=== PATIENT | female | born 1990 | race Hispanic/Latino ===

== ENCOUNTER 2017-07-09 17:56 | Emergency (ER) | payer OTHER ==
[~2017-07-09] VITALS: Ht 170.2 cm; Wt 125.2 kg
[2017-07-09] MEDS ORDERED: KETOROLAC TROMETHAMINE 30 MG/ML VIAL IV STA (21:54)
[2017-07-09] MEDS ORDERED: ONDANSETRON HCL INJ 2 MG/ML VIAL IV STA (21:54)
[2017-07-09 22:51] LABS: BILIRUBIN,URINE NEGATIVE (NEGATIVE); KETONES,URINE NEGATIVE (NEGATIVE); LEUKOCYTE ESTERASE ,URINE NEGATIVE (NEGATIVE); NITRITE,URINE NEGATIVE (NEGATIVE); PROTEIN,URINE DIPSTICK NEGATIVE (NEGATIVE); URINE UROBILINOGEN 0.2 mg/dL (0.2 - 1)
[2017-07-09 22:57] LABS: CLARITY,URINE CLEAR (CLEAR); COLOR,URINE YELLOW (YELLOW)
[2017-07-09 22:58] LABS: PREGNANCY TEST, URINE NEGATIVE (NEGATIVE)
[2017-07-09 23:40] LABS: BASOPHILS # (AUTO) 0.1 (0.0-0.1); BASOPHILS % 0.3 % (0.0-1.0); EOSINOPHILS # (AUTO) 0.3 (0.0-0.4); EOSINOPHILS % 2.2 % (0.0-6.0); HEMATOCRIT 38.1 % (34.2-44.1); HEMOGLOBIN 12.2 g/dL (12.0-16.0); LYMPHOCYTES # (AUTO) 4.2 (1.0-3.2); LYMPHOCYTES % 29.4 % (18.0-39.1); MEAN CORPUSCULAR HEMOGLOBIN 25.8 pg (28-32); MEAN CORPUSCULAR VOLUME 80.7 fL (81-99); MONOCYTES # (AUTO) 0.9 (0.2-0.8); MONOCYTES % 6.4 % (4.4-11.3); NEUTROPHILS # (AUTO) 8.8 (2.1-6.9); NEUTROPHILS % 61.4 % (38.7-80.0); PLATELET COUNT 390 x10e3/uL (140-360); RED BLOOD COUNT 4.72 x10e6/uL (3.6-5.1); RED CELL DISTRIBUTION WIDTH 14.4 % (11.7-14.4)
[2017-07-09 23:51] LABS: ALANINE AMINOTRANSFERASE 24 IU/L (0-55); ALBUMIN 3.6 g/dL (3.5-5.0); ALBUMIN/GLOBULIN RATIO 0.8 (0.8-2.0); ANION GAP 15.7 mmol/L (8-16); BLOOD UREA NITROGEN 11 mg/dL (7-26); BUN/CREATININE RATIO 14 (6-25); CALCIUM 9.3 mg/dL (8.4-10.2); CARBON DIOXIDE 20 mmol/L (22-29); CHLORIDE 106 mmol/L (98-107); CREATININE, SERUM 0.76 mg/dL (0.57-1.11); EST GLOMERULAR FILTRATION RATE > 60 ML/MIN (60-); GLUCOSE 83 mg/dL (74-118); POTASSIUM 3.7 mmol/L (3.5-5.1); SODIUM 138 mmol/L (136-145)
--- NOTE | 2017-07-09 23:54 | Diagnostic Imaging Report ---
EXAM: CT Abdomen and Pelvis WITHOUT contrast INDICATION: Left flank pain COMPARISON: None. TECHNIQUE: Abdomen and pelvis were scanned utilizing a multidetector helical scanner from the lung base to the pubic symphysis without administration of IV contrast. Absence of intravenous contrast decreases sensitivity for detection of focal lesions and vascular pathology. Coronal and sagittal reformations were obtained. Stone protocol is performed. IV CONTRAST: None. ORAL CONTRAST: Water RADIATION DOSE: Total DLP: 895.22 mGy*cm Estimated effective dose: (DLP x 0.015 x size factor) mSv COMPLICATIONS: None FINDINGS: LINES and TUBES: None. LOWER THORAX: Unremarkable HEPATOBILIARY: No focal hepatic lesions. No biliary ductal dilation. GALLBLADDER: No radio-opaque stones or sludge. The gallbladder is contracted No wall thickening. SPLEEN: No splenomegaly. PANCREAS: No focal masses or ductal dilatation. ADRENALS: No adrenal nodules KIDNEYS/URETERS: No hydronephrosis. No cystic or solid mass lesions. 2 mm stone noted in the interpolar region of the right kidney on series 3, image 63. No evidence of left nephrolithiasis GI TRACT: No abnormal distention, wall thickening, or evidence of bowel obstruction. Appendix is normal. PELVIC ORGANS/BLADDER: Unremarkable. LYMPH NODES: No lymphadenopathy. VESSELS: Circumaortic left renal vein. Otherwise unremarkable. PERITONEUM / RETROPERITONEUM: No free air or fluid. BONES: Unremarkable. SOFT TISSUES: Unremarkable. IMPRESSION: 1. Right-sided nonobstructing nephrolithiasis measuring 2 mm. No evidence of left-sided nephrolithiasis or hydronephrosis. 2. Otherwise, unremarkable study Signed by: Dr. Jeremiah Christopher M.D. on 07/09/2017 11:51 PM
[2017-07-10] LABS: BACTERIA,URINE MANY /HPF; EPITHELIAL CELLS,URINE MODERATE /LPF; RBC,URINE 0-5 /HPF (0-5); WBC,URINE (MAN) 0-5 /HPF (0-5)
[2017-07-10 00:16] VITALS: BP 133/87
[2017-07-10 00:16] LABS: ALKALINE PHOSPHATASE 96 IU/L (40-150)
== END 2017-07-10 00:21 | disposition home or self-care (01) ==
LOC: ER 17:56
DX: R10.9 Unspecified abdominal pain (principal); R11.0 Nausea; M54.5 Low back pain; N20.0 Calculus of kidney
CPT/HCPCS: 36415; 74176; 80053; 81001; 81025; 85025; 87086; 99284; J1885; J2405

== ENCOUNTER 2019-02-26 08:11 | Emergency (ER) | payer OTHER ==
[~2019-02-26] VITALS: Ht 170.2 cm; Wt 125.2 kg
--- OUTSIDE RECORDS SUMMARY | 2019-02-26 08:14 | XMS REPORT ---
[facility] Address Unknown Phone Unavailable Care Team Providers Care [employer]ader Name Role Phone Alysa VERGARA Unavailable Unavailable Problems This patient has no known problems. Allergies, Adverse Reactions, Alerts This patient has no known allergies or adverse reactions. Medications This patient has no known medications. Results Test Description Test Time Test Comments Text Results Atomic Results Result Comments CT ABDOMEN/PELVIS WO [place] [address] Patient Name: MORENITA COLLAZO MR #: [id number] : 1990 Age/Sex: 27/F Req #: [id number] Adm Physician: Ordered by: QUIN ALLEN MD Report #: [id number] Location: ER Room/Bed: Procedure: [id number] CT/CT ABDOMEN/PELVIS WO Exam Date: 07/09/17 Exam Time: 2318 REPORT STATUS: Signed EXAM: CT Abdomen and Pelvis WITHOUT contrast INDICATION: Left flank pain COMPARISON: None. TECHNIQUE: Abdomen and pelvis were scanned utilizing a multidetector helical scanner from the lung base to the pubic symphysis without administration of IV contrast. Absence of intravenous contrast decreases sensitivity for detection of focal lesions and vascular pathology. Coronal and sagittal reformations were obtained. Stone protocol is performed. IV CONTRAST: None. ORAL CONTRAST: Water RADIATION DOSE: Total DLP: 895.22 mGy*cm Estimated effective dose: (DLP x 0.015 x size factor) mSv COMPLICATIONS: None FINDINGS: LINES and TUBES: None. LOWER THORAX: Unremarkable HEPATOBILIARY: No focal hepatic lesions. No biliary ductal dilation. GALLBLADDER: No radio-opaque stones or sludge. The gallbladder is contracted No wall thickening. SPLEEN: No splenomegaly. PANCREAS: No focal masses or ductal dilatation. ADRENALS: No adrenal nodules KIDNEYS/URETERS: No hydronephrosis. No cystic or solid mass lesions. 2 mm stone noted in the interpolar region of the right kidney on series 3, image 63. No evidence of left nephrolithiasis GI TRACT: No abnormal distention, wall thickening, or evidence of bowel obstruction. Appendix is normal. PELVIC ORGANS/BLADDER: Unremarkable. LYMPH NODES: No lymphadenopathy. VESSELS: Circumaortic left renal vein. Otherwise unremarkable. PERITONEUM / RETROPERITONEUM: No free air or fluid. BONES: Unremarkable. SOFT TISSUES: Unremarkable. IMPRESSION: 1. Right-sided nonobstructing nephrolithiasis measuring 2 mm. No evidence of left-sided nephrolithiasis or hydronephrosis. 2. Otherwise, unremarkable study Signed by: Dr. Jeremiah Christopher M.D. on 07/09/2017 11:51 PM Dictated By: JEREMIAH CONNER MD [id number] Transcribed By: CHIKA on 07/09/17 [id number] COPY TO: QUIN ALLEN MD
[2019-02-26] MEDS ORDERED: SODIUM CHLORIDE 0.9% 1000ML 1,000 ML ONE (08:41)
[2019-02-26 08:48] LABS: BASOPHILS # (AUTO) 0.1 (0.0-0.1); BASOPHILS % 0.5 % (0.0-1.0); EOSINOPHILS # (AUTO) 0.3 (0.0-0.4); EOSINOPHILS % 2.9 % (0.0-6.0); HEMATOCRIT 39.2 % (34.2-44.1); HEMOGLOBIN 12.5 g/dL (12.0-16.0); LYMPHOCYTES # (AUTO) 2.7 (1.0-3.2); LYMPHOCYTES % 25.8 % (18.0-39.1); MEAN CORPUSCULAR HEMOGLOBIN 26.4 pg (28-32); MEAN CORPUSCULAR HGB CONC 31.9 g/dL (31-35); MEAN CORPUSCULAR VOLUME 82.7 fL (81-99); MONOCYTES # (AUTO) 0.7 (0.2-0.8); MONOCYTES % 6.7 % (4.4-11.3); NEUTROPHILS # (AUTO) 6.6 (2.1-6.9); NEUTROPHILS % 63.4 % (38.7-80.0); PLATELET COUNT 332 x10e3/uL (140-360); RED BLOOD COUNT 4.74 x10e6/uL (3.6-5.1); RED CELL DISTRIBUTION WIDTH 13.9 % (11.7-14.4)
[2019-02-26 08:50] LABS: BILIRUBIN,URINE NEGATIVE (NEGATIVE); CLARITY,URINE CLEAR (CLEAR); COLOR,URINE YELLOW (YELLOW); KETONES,URINE NEGATIVE (NEGATIVE); LEUKOCYTE ESTERASE ,URINE TRACE (NEGATIVE); NITRITE,URINE NEGATIVE (NEGATIVE); PROTEIN,URINE DIPSTICK TRACE (NEGATIVE); URINE UROBILINOGEN 0.2 mg/dL (0.2 - 1)
[2019-02-26] MEDS ORDERED: SODIUM CHLORIDE 0.9% IV ONE (09:00)
[2019-02-26 09:05] LABS: ALANINE AMINOTRANSFERASE 26 IU/L (0-55); ALBUMIN 3.3 g/dL (3.5-5.0); ALBUMIN/GLOBULIN RATIO 0.9 (0.8-2.0); ALKALINE PHOSPHATASE 92 IU/L (40-150); BLOOD UREA NITROGEN 9 mg/dL (7-26); BUN/CREATININE RATIO 12 (6-25); CALCIUM 8.9 mg/dL (8.4-10.2); CARBON DIOXIDE 22 mmol/L (22-29); CHLORIDE 105 mmol/L (98-107); CREATININE, SERUM 0.75 mg/dL (0.57-1.11); EST GLOMERULAR FILTRATION RATE > 60 ML/MIN (60-); GLUCOSE 100 mg/dL (74-118); SODIUM 136 mmol/L (136-145)
[2019-02-26 09:24] LABS: RBC,URINE 21-50 /HPF (0-5); WBC,URINE (MAN) 21-50 /HPF (0-5)
[2019-02-26 09:25] LABS: BACTERIA,URINE FEW /HPF; EPITHELIAL CELLS,URINE FEW /LPF
[2019-02-26] MEDS ORDERED: KETOROLAC TROMETHAMINE 30 MG/ML VIAL IV ONE (09:30)
[2019-02-26] MEDS ORDERED: MORPHINE SULFATE 2 MG/ML SYR 1ML IV ONE (09:30)
[2019-02-26] MEDS ORDERED: ONDANSETRON HCL INJ 2MG/ML 2ML 2 MG/ML VIAL IV ONE ×2 (09:30→11:30)
[2019-02-26 10:06] LABS: PREGNANCY TEST, URINE NEGATIVE (NEGATIVE)
[2019-02-26] MEDS ORDERED: MELATONIN3 MG PO (11:04)
[2019-02-26] MEDS ORDERED: TRINTELLIX PO (11:04)
[2019-02-26] MEDS ORDERED: ADZENYS PO (11:04)
[2019-02-26] MEDS ORDERED: QUETIAPINE FUM300 MG PO (11:04)
--- NOTE | 2019-02-26 11:30 | Diagnostic Imaging Report ---
Exam: CT abdomen and pelvis Comparison: July 09, 2017 Clinical history: Right flank pain Technique: Helical images of the abdomen and pelvis were obtained without contrast using the renal stone protocol Findings: Mild bibasilar dependent atelectasis is noted. There is no evidence of pleural effusion. The cardiac size is within normal limits. Noncontrast images of the liver, spleen, pancreas, gallbladder, adrenal glands, and kidneys are unremarkable. The prior mentioned 2 mm right nephrolithiasis is no longer visualized which may represent interval passage. The small and large bowels are normal in caliber without evidence of obstruction. Mild retained feces are noted throughout the colon. The bladder is unremarkable. Intrauterine device is noted within the uterus. There is interval development of a 5.0 x 4.8 cm isodense lesion in the left adnexa likely ovarian in origin. If indicated, pelvic ultrasound is recommended for further assessment. There is no evidence of lymphadenopathy or free fluid. The aorta and IVC are normal in caliber. Impression: 1. No evidence of radiopaque stones in bilateral renal collecting systems. 2. Left adnexal lesion measuring up to 5 cm in diameter, this may represent an ovarian cyst. However, a solid lesion cannot be excluded. Ultrasound is recommended for further assessment. Signed by: Dr. Pedro Monterroso MD on 02/26/2019 11:27 AM
[2019-02-26 11:53] VITALS: BP 101/55
== END 2019-02-26 12:04 | disposition home or self-care (01) ==
LOC: ER 08:11
DX: R10.31 Right lower quadrant pain (principal); N30.90 Cystitis, unspecified without hematuria; N83.202 Unspecified ovarian cyst, left side
CPT/HCPCS: 36415; 74176; 80053; 81001; 81025; 85025; 99284; J1885; J2270; J2405; J7030

== ENCOUNTER 2022-05-26 21:02 | Emergency (ER) | payer OTHER ==
[~2022-05-26] VITALS: Ht 170.2 cm; Wt 125.2 kg
[~2022-05-26 21:02] MED LIST: ADZENYS PO; MELATONIN3 MG PO; QUETIAPINE FUM300 MG PO; TRINTELLIX PO
[2022-05-26] MEDS ORDERED: KETOROLAC TROMETHAMINE 30 MG/ML VIAL IV STA (21:10)
[2022-05-26] MEDS ORDERED: ONDANSETRON HCL INJ 2MG/ML 2ML 2 MG/ML VIAL IV STA (21:10)
[2022-05-26] MEDS ORDERED: SODIUM CHLORIDE 0.9% 1000ML 1,000 ML IV SCH (21:15)
[2022-05-26 21:25] LABS: BASOPHILS # (AUTO) 0.1 (0.0-0.1); BASOPHILS % 0.5 % (0.0-1.0); EOSINOPHILS # (AUTO) 0.2 (0.0-0.4); EOSINOPHILS % 1.7 % (0.0-6.0); HEMATOCRIT 38.4 % (34.2-44.1); HEMOGLOBIN 12.5 g/dL (12.0-16.0); LYMPHOCYTES # (AUTO) 4.2 (1.0-3.2); LYMPHOCYTES % 29.9 % (18.0-39.1); MEAN CORPUSCULAR HEMOGLOBIN 25.4 pg (28-32); MEAN CORPUSCULAR HGB CONC 32.6 g/dL (31-35); MEAN CORPUSCULAR VOLUME 77.9 fL (81-99); MONOCYTES % 7.1 % (4.4-11.3); NEUTROPHILS # (AUTO) 8.5 (2.1-6.9); NEUTROPHILS % 60.2 % (38.7-80.0); PLATELET COUNT 410 x10e3/uL (140-360); RED BLOOD COUNT 4.93 x10e6/uL (3.6-5.1); RED CELL DISTRIBUTION WIDTH 14.1 % (11.7-14.4)
[2022-05-26 21:46] LABS: ALBUMIN 4.1 g/dL (3.5-5.0); ALBUMIN/GLOBULIN RATIO 1.1 (0.8-2.0); CALCIUM 9.5 mg/dL (8.4-10.2); CREATININE, SERUM 0.89 mg/dL (0.57-1.11)
[2022-05-27] MEDS ORDERED: ONDANSETRON ODT4 MG PO (00:03)
[2022-05-27] MEDS ORDERED: KETOROLAC TROME10 MG PO (00:03)
== END 2022-05-27 00:15 | disposition home or self-care (01) ==
LOC: ER 21:12
DX: R10.9 Unspecified abdominal pain (principal); R11.10 Vomiting, unspecified; R19.7 Diarrhea, unspecified; R16.0 Hepatomegaly, not elsewhere classified; Z88.6 Allergy status to analgesic agent; Z87.442 Personal history of urinary calculi
CPT/HCPCS: 36415; 74176; 80053; 84702; 85025; 99284; J1885; J2405; J7030

== ENCOUNTER 2022-11-11 16:15 | Observation (INO) | payer OTHER ==
[~2022-11-11] VITALS: Ht 170.2 cm; Wt 136.1 kg
[~2022-11-11 16:15] MED LIST changes: +KETOROLAC TROME10 MG PO; +ONDANSETRON ODT4 MG PO
[2022-11-11] MEDS ORDERED: Morphine 4mg INJECTION 4 MG/ML INJ IV STA (16:45)
[2022-11-11] MEDS ORDERED: ONDANSETRON HCL INJ 2MG/ML 2ML 2 MG/ML VIAL IV STA ×3 (16:45→20:27)
[2022-11-11] MEDS ORDERED: SODIUM CHLORIDE 0.9% 1000ML 1,000 ML IV STA (16:45)
[2022-11-11 17:12] LABS: BASOPHILS # (AUTO) 0.1 (0.0-0.1); BASOPHILS % 0.4 % (0.0-1.0); EOSINOPHILS # (AUTO) 0.3 (0.0-0.4); EOSINOPHILS % 1.5 % (0.0-6.0); HEMATOCRIT 38.8 % (34.2-44.1); HEMOGLOBIN 12.1 g/dL (12.0-16.0); LYMPHOCYTES # (AUTO) 3.5 (1.0-3.2); LYMPHOCYTES % 20.6 % (18.0-39.1); MEAN CORPUSCULAR HGB CONC 31.2 g/dL (31-35); MEAN CORPUSCULAR VOLUME 80.2 fL (81-99); MONOCYTES # (AUTO) 1.1 (0.2-0.8); MONOCYTES % 6.7 % (4.4-11.3); NEUTROPHILS # (AUTO) 11.8 (2.1-6.9); NEUTROPHILS % 70.3 % (38.7-80.0); PLATELET COUNT 402 x10e3/uL (140-360); RED BLOOD COUNT 4.84 x10e6/uL (3.6-5.1)
[2022-11-11 17:30] LABS: ALANINE AMINOTRANSFERASE 19 IU/L (0-55); ALBUMIN 3.5 g/dL (3.5-5.0); ALBUMIN/GLOBULIN RATIO 0.9 (0.8-2.0); ALKALINE PHOSPHATASE 82 IU/L (40-150); BLOOD UREA NITROGEN 13 mg/dL (7-26); BUN/CREATININE RATIO 13 (6-25); CALCIUM 9.2 mg/dL (8.4-10.2); CARBON DIOXIDE 23 mmol/L (22-29); CHLORIDE 106 mmol/L (98-107); CREATININE, SERUM 0.97 mg/dL (0.57-1.11); GLUCOSE 96 mg/dL (74-118); LIPASE 11 U/L (8-78); SODIUM 138 mmol/L (136-145)
[2022-11-11] MEDS ORDERED: IOPAMIDOL 370 MG/ML 100 ML INFUS..BTL INJ ONE (17:49)
[2022-11-11] MEDS ORDERED: Morphine 4mg INJECTION 4 MG/ML INJ IV ONE (18:00)
[2022-11-11] MEDS ORDERED: HYDROMORPHONE 1MG/1ML INJ IV STA (18:30)
[2022-11-11] MEDS ORDERED: HYDROMORPHONE 1MG/1ML INJ ONE (18:37)
[2022-11-11] MEDS ORDERED: Morphine 4mg INJECTION 4 MG/ML INJ IV PRN (19:00)
[2022-11-11] MEDS ORDERED: ONDANSETRON HCL INJ 2MG/ML 2ML 2 MG/ML VIAL IV PRN (19:00)
[2022-11-11 22:10] VITALS: PULSE 78; RESP 18; O2SAT 100
[2022-11-11 23:14] VITALS: BP 110/56; PULSE 77; RESP 18; TEMP 98.3; O2SAT 98
[2022-11-11] MEDS ORDERED: NEURONTIN300 MG PO (23:19)
[2022-11-11] MEDS: SODIUM CHLORIDE 0.9% 1000ML 1,000 ML IV SCH (23:29)
[2022-11-11 23:53] LABS: CLARITY,URINE CLEAR (CLEAR); COLOR,URINE YELLOW (YELLOW); KETONES,URINE NEGATIVE (NEGATIVE); LEUKOCYTE ESTERASE ,URINE NEGATIVE (NEGATIVE); NITRITE,URINE NEGATIVE (NEGATIVE); PROTEIN,URINE DIPSTICK NEGATIVE (NEGATIVE); URINE UROBILINOGEN 0.2 mg/dL (0.2 - 1)
[2022-11-11 23:56] LABS: BACTERIA,URINE FEW /HPF; EPITHELIAL CELLS,URINE MODERATE /LPF; WBC,URINE (MAN) 0-5 /HPF (0-5)
[2022-11-12] MEDS: SODIUM CHLORIDE 0.9% 1000ML 1,000 ML IV SCH (03:00)
[2022-11-12 05:41] VITALS: BP 90/59; PULSE 90; RESP 18; TEMP 98; O2SAT 99
[2022-11-12 05:56] LABS: BASOPHILS # (AUTO) 0.1 (0.0-0.1); BASOPHILS % 0.3 % (0.0-1.0); EOSINOPHILS # (AUTO) 0.3 (0.0-0.4); EOSINOPHILS % 1.9 % (0.0-6.0); HEMATOCRIT 33.8 % (34.2-44.1); HEMOGLOBIN 10.4 g/dL (12.0-16.0); LYMPHOCYTES # (AUTO) 3.8 (1.0-3.2); LYMPHOCYTES % 25.8 % (18.0-39.1); MEAN CORPUSCULAR HGB CONC 30.8 g/dL (31-35); MEAN CORPUSCULAR VOLUME 81.3 fL (81-99); MONOCYTES # (AUTO) 0.9 (0.2-0.8); MONOCYTES % 6.3 % (4.4-11.3); NEUTROPHILS # (AUTO) 9.6 (2.1-6.9); NEUTROPHILS % 65.3 % (38.7-80.0); PLATELET COUNT 332 x10e3/uL (140-360); RED BLOOD COUNT 4.16 x10e6/uL (3.6-5.1); RED CELL DISTRIBUTION WIDTH 14.9 % (11.7-14.4)
[2022-11-12 06:26] LABS: ANION GAP 10.1 mmol/L (8-16); CREATININE, SERUM 0.74 mg/dL (0.57-1.11); POTASSIUM 4.1 mmol/L (3.5-5.1)
[2022-11-12 06:37] LABS: CALCIUM 8.4 mg/dL (8.4-10.2)
[2022-11-12 07:40] VITALS: PULSE 80; RESP 18; O2SAT 97
[2022-11-12 07:50] VITALS: BP 111/72; PULSE 50; RESP 20; TEMP 98.3; O2SAT 94
[2022-11-12 08:21] VITALS: BP 111/92; PULSE 50; RESP 20; TEMP 98.3; O2SAT 94
[2022-11-12 12:03] VITALS: BP 116/69; PULSE 69; RESP 18; TEMP 98.2; O2SAT 98
[2022-11-12 13:06] VITALS: PULSE 68; RESP 18; O2SAT 98
[2022-11-12] MEDS ORDERED: ACETAMINOPHEN 325 MG TAB PO ONE (14:00)
== END 2022-11-12 15:22 | disposition home or self-care (01) ==
LOC: ER 16:44 → ERHOLD 18:58 → MED/SURG3 22:15
PROVIDERS: ADMIT Internal Medicine; ATTEND Internal Medicine
DX: N13.2 Hydronephrosis with renal and ureteral calculous obstruction (principal); R31.9 Hematuria, unspecified; K80.20 Calculus of gallbladder without cholecystitis without obstruction; E66.01 Morbid (severe) obesity due to excess calories; Z68.44 Body mass index [BMI] 60.0-69.9, adult
CPT/HCPCS: 0223U; 36415 ×2; 74018; 74177; 80048; 80053; 81001; 83690; 84702; 85025 ×2; 94799 ×2; 96360; 96361; 99284; G0378 ×2; J1170; J2270 ×2; J2405; J2543 ×2; J7030 ×2; Q9967